=== PATIENT | female | born 1990 | race Caucasian/White ===

== ENCOUNTER 2018-10-02 07:14 | Inpatient (IN) | payer MEDICAID ==
[~2018-10-02] VITALS: Ht 165.1 cm; Wt 59.9 kg
[2018-10-02] MEDS ORDERED: MORPHINE SULFATE 4 MG/ML CPJ (NOT FOR IM USE) IV STA (08:05)
[2018-10-02] MEDS ORDERED: ONDANSETRON HCL 4MG/2ML INJ IV STA (08:05)
[2018-10-02] MEDS ORDERED: SODIUM CHLORIDE 0.9% 1,000 ML IV ONE (08:05)
[2018-10-02 08:35] LABS: CHLORIDE 110 mEq/L (98-107)
[2018-10-02 08:42] LABS: BASOPHILS % 0.6 % (0.0-2.0); HEMATOCRIT. 28.6 % (36.0-48.0); HEMOGLOBIN. 9.1 g/dL (12.0-16.0); LYMPHOCYTES % 12.6 % (20.0-50.0); MEAN CORPUSCULAR HEMOGLOBIN 23.2 pg (28.0-32.0); MEAN CORPUSCULAR VOLUME 72.8 fL (81.0-99.0); MEAN PLATELET VOLUME 9.3 fl (7.4-10.4); MONOCYTES % 6.1 % (2.0-8.0); NEUTROPHILS % 78.7 % (40.0-76.0); PLATELET 284 x1000/uL (130-400); RED BLOOD CELL COUNT 3.92 mill/uL (4.2-5.4); RED CELL DISTRIBUTION WIDTH 16.4 % (11.6-14.6)
[2018-10-02 09:07] LABS: CLARITY URINE CLOUDY (CLEAR); COLOR URINE YELLOW (YELLOW); KETONES URINE TRACE (NEGATIVE); LEUKOCYTE ESTERASE URINE 1+ (NEGATIVE); NITRITE URINE NEGATIVE (NEGATIVE); OCCULT BLOOD URINE 3+ (NEGATIVE); PH URINE 6.5 (4.5-8.0); PROTEIN URINE 1+ (NEGATIVE); SPECIFIC GRAVITY URINE 1.026 (1.005-1.030)
[2018-10-02] MEDS ORDERED: MORPHINE SULFATE 4 MG/ML CPJ (NOT FOR IM USE) IV ONE (09:45)
[2018-10-02 09:54] LABS: *AMPHETAMINES SCREEN URINE NEGATIVE (NEGATIVE); *BENZODIAZEPINES SCREEN URINE NEGATIVE (NEGATIVE); *COCAINE SCREEN URINE NEGATIVE (NEGATIVE); METHADONE URINE SCREEN NEGATIVE (NEGATIVE); OPIATES URINE SCREEN NEGATIVE (NEGATIVE)
[2018-10-02 09:55] LABS: *BARBITURATES SCREEN URINE NEGATIVE (NEGATIVE); CANNABINOID URINE SCREEN NEGATIVE (NEGATIVE); PHENCYCLIDINE URINE SCREEN NEGATIVE (NEGATIVE)
[2018-10-02] MEDS ORDERED: FAMOTIDINE 20MG TABLET PO ONE (10:30)
[2018-10-02] MEDS ORDERED: CEPHALEXIN 250MG CAPSULE PO ONE (10:45)
[2018-10-02] MEDS ORDERED: BUPIVACAINE HCL 0.5% (5MG/ML) 50ML ONE (11:11)
[2018-10-02] MEDS ORDERED: SKIN ADHESIVE 0.7 GM EA TOP ONE (11:11)
[2018-10-02] MEDS ORDERED: SODIUM CHLORIDE 0.9% 1,000 ML IV SCH ×2 (11:20→11:30)
[2018-10-02] MEDS ORDERED: DIPHENHYDRAMINE 50MG/ML VIAL IV PRN ×2 (11:30→11:45)
[2018-10-02] MEDS ORDERED: IPRATROPIUM/ALBUTEROL 0.5-3(2.5)MG/3ML NEB INH PRN ×2 (11:30→11:45)
[2018-10-02] MEDS ORDERED: MAGNESIUM/ALUMINUM HYDROXIDE/SIMETHICONE 30ML UDC PO PRN ×2 (11:30→11:45)
[2018-10-02] MEDS ORDERED: DOCUSATE SODIUM 100MG CAPSULE PO PRN ×2 (11:30→11:45)
[2018-10-02] MEDS ORDERED: CLONIDINE 0.1MG TABLET PO PRN ×2 (11:30→11:45)
[2018-10-02] MEDS ORDERED: MORPHINE SULFATE 2 MG/ML CPJ (NOT FOR IM USE) IV PRN ×3 (11:30→13:00)
[2018-10-02] MEDS ORDERED: ONDANSETRON HCL 4MG/2ML INJ IV PRN ×5 (11:30→13:00)
[2018-10-02] MEDS ORDERED: GUAIFENESIN 200MG/10ML SUGAR FREE UDC PO PRN ×2 (11:30→11:45)
[2018-10-02] MEDS ORDERED: ACETAMINOPHEN 325MG TABLET PO PRN ×3 (11:30→13:00)
[2018-10-02] MEDS ORDERED: CEFTRIAXONE 1 G PREMIX 50 ML IV SCH (11:30)
[2018-10-02] MEDS ORDERED: FENTANYL CITRATE/PF 50MCG/ML 2ML VIAL ONE (11:42)
[2018-10-02] MEDS ORDERED: PROPOFOL 200MG/20ML VIAL IV ONE ×2 (11:42→12:46)
[2018-10-02] MEDS ORDERED: NEOSTIGMINE METHYLSULFATE 1MG/ML 10 ML VIAL ONE (11:42)
[2018-10-02] MEDS ORDERED: ROCURONIUM BROMIDE 10MG/ML VIAL 5ML IV ONE (11:42)
[2018-10-02] MEDS ORDERED: MIDAZOLAM HCL 2 MG/2 ML VIAL ONE (11:43)
[2018-10-02] MEDS ORDERED: GLYCOPYRROLATE 0.2 MG/ML 2ML VIAL ONE (11:43)
[2018-10-02] MEDS ORDERED: DEXAMETHASONE 4MG/ML 1ML VIAL ONE (12:03)
[2018-10-02] MEDS ORDERED: ONDANSETRON HCL 4MG/2ML INJ ONE (12:03)
[2018-10-02 12:09] LABS: PHOSPHORUS 3.9 mg/dL (2.5-4.9)
[2018-10-02] MEDS ORDERED: PIPERACILLIN/TAZ 3.375G PREMIX 50 ML IV SCH (12:15)
[2018-10-02] MEDS ORDERED: MEPERIDINE HCL/PF 25MG/ML CPJ IV PRN ×2 (12:30→12:45)
[2018-10-02] MEDS ORDERED: LABETALOL 5MG/ML SYR 20 MG/4 ML SYRINGE IV PRN ×2 (12:30→12:45)
[2018-10-02] MEDS ORDERED: HYDROMORPHONE HCL/PF 2MG/ML CPJ IV PRN ×2 (12:30→12:45)
[2018-10-02] MEDS ORDERED: DEXT 5%/0.45% NACL KCL 20MEQ/L 1,000 ML IV SCH (12:48)
[2018-10-02] MEDS ORDERED: HYDROCODONE/ACETAMINOPHEN 5/325MG TABLET PO PRN ×2 (13:00)
[2018-10-02] MEDS ORDERED: ACETAMINOPHEN 650MG SUPP PR PRN (13:00)
[2018-10-02] MEDS ORDERED: SODIUM CHLORIDE 0.9% INJ 3ML FLUSH IVF SCH (14:00)
[2018-10-02] MEDS ORDERED: MEPERIDINE HCL/PF 25MG/ML CPJ ONE (14:06)
[2018-10-02 14:30] VITALS: BP 115/83
[2018-10-02 16:00] VITALS: BP 128/96
[2018-10-02] MEDS: CEFTRIAXONE 1 G PREMIX 50 ML IV SCH (16:23)
[2018-10-02 20:00] VITALS: BP 108/69
[2018-10-02 20:08] LABS: CREATINE KINASE MB FRACTION 6.9 ng/mL (0.5-3.6)
[2018-10-02] MEDS: MORPHINE SULFATE 4 MG/ML CPJ (NOT FOR IM USE) IV PRN (20:50)
[2018-10-02 23:16] LABS: CREATINE KINASE MB FRACTION 5.6 ng/mL (0.5-3.6)
[2018-10-03] VITALS (7 sets, daily range): BP systolic 99–117; BP diastolic 55–74
[2018-10-03] MEDS: MORPHINE SULFATE 4 MG/ML CPJ (NOT FOR IM USE) IV PRN ×2 (04:49→08:12)
[2018-10-03 06:48] LABS: CHLORIDE 110 mEq/L (98-107)
[2018-10-03 06:55] LABS: BASOPHILS % 0.5 % (0.0-2.0); EOSINOPHILS % 3.2 % (0.0-5.0); HEMATOCRIT. 26.1 % (36.0-48.0); HEMOGLOBIN. 8.3 g/dL (12.0-16.0); LDL CHOLESTEROL 65 mg/dL (5-100); LYMPHOCYTES % 13.3 % (20.0-50.0); MEAN CORPUSCULAR HEMOGLOBIN 23.4 pg (28.0-32.0); MEAN PLATELET VOLUME 9.6 fl (7.4-10.4); MONOCYTES % 9.2 % (2.0-8.0); NEUTROPHILS % 73.8 % (40.0-76.0); PLATELET 227 x1000/uL (130-400); RED BLOOD CELL COUNT 3.57 mill/uL (4.2-5.4); RED CELL DISTRIBUTION WIDTH 16.6 % (11.6-14.6)
[2018-10-03 06:56] LABS: HDL CHOLESTEROL 34 mg/dL (40-59)
[2018-10-03] MEDS: CEFTRIAXONE 1 G PREMIX 50 ML IV SCH ×2 (16:00→18:48)
== END 2018-10-03 19:57 | disposition home or self-care (01) | DRG 951 ==
LOC: ER 07:14 → 6EST 11:09 → ER 11:20 → ENRESERV 13:09
PROVIDERS: ADMIT Internal Medicine; ATTEND Internal Medicine
PROC: 0FT44ZZ Resection of Gallbladder, Percutaneous Endoscopic Approach (ICD-10-PCS; principal; 2018-10-02)
DX: O99.63 Diseases of the digestive system complicating the puerperium (principal); K80.00 Calculus of gallbladder with acute cholecystitis without obstruction; D50.9 Iron deficiency anemia, unspecified; O90.81 Anemia of the puerperium; K21.9 Gastro-esophageal reflux disease without esophagitis; R74.0 Nonspecific elevation of levels of transaminase and lactic acid dehydrogenase [LDH]; Z98.891 History of uterine scar from previous surgery
CPT/HCPCS: 36415; 73706; 76705; 80061; 80305; 82248; 82550; 82553; 83735; 84100; 84443; 88304; 93970; 97162; 97166; J0696; J1100; J2175; J2250; J2270; J2405; J2543; J2704; J2710; J3010; J3490; J7030